=== PATIENT | male | born 1950 | race Caucasian/White ===

== ENCOUNTER 2019-06-08 10:25 | Day surgery (SDC) | payer MEDICARE, BC ==
[2019-06-05 11:57] VITALS: BMI 25.8
[2019-06-08] MEDS ORDERED: Bupivacaine/Epinephrine 0.25% 30 ML VIAL ONE (11:51)
[2019-06-08] MEDS ORDERED: Midazolam HCl 2 mg/2 ml Vial ONE (12:44)
[2019-06-08] MEDS ORDERED: Fentanyl 100 MCG/2 ML VIAL ONE (12:44)
--- NOTE | 2019-06-08 15:15 | OP ---
DATE OF PROCEDURE: 06/08/2019 PREOPERATIVE DIAGNOSIS: Umbilical hernia. POSTOPERATIVE DIAGNOSIS: Umbilical hernia. PROCEDURE PERFORMED: Umbilical hernia repair with mesh, Ventralex ST, small, 4 cm. ANESTHESIA: General. ESTIMATED BLOOD LOSS: Minimal. COMPLICATIONS: None. SPECIMENS: None. FINDINGS: Umbilical hernia. TECHNIQUE: The patient was taken to the operating room and laid supine on the operating room table. After general anesthetic was obtained, the abdomen was shaved, prepped, and draped in a sterile fashion. A curved incision was made below the umbilicus. Cautery was used to dissect down to and score the fascia. Umbilical stalk was amputated, exposing umbilical defect. The edges of the defect were freshened. The preperitoneal space was bluntly dissected through the defect. The small Ventralex mesh was brought into the sterile field. The inlay was placed in preperitoneal space and its fibers laid out flat against the posterior abdominal wall. Nurolon was used to sew the skirt of the mesh to the fascia on both sides. Nurolon was then used to close the fascia over the mesh as the tails were cut at the level of fascia. The wound was irrigated. Local anesthetic was applied. The umbilical stalk was tacked back down using 3-0 Vicryl. The skin was closed using running 4-0 Monocryl and Dermabond. The patient was sent to Recovery in stable condition. All instrument counts, needle counts, and lap counts were correct. Job ID: [id number]
== END 2019-06-08 16:00 | disposition home or self-care (01) ==
LOC: SDC 10:25 → EEVIPCON 11:30 → SDC 16:00
PROVIDERS: ATTEND Surgery
PROC: 0WUF0JZ Supplement Abdominal Wall with Synthetic Substitute, Open Approach (ICD-10-PCS; principal; 2019-06-08)
DX: K42.9 Umbilical hernia without obstruction or gangrene (principal); Z79.899 Other long term (current) drug therapy; Z88.8 Allergy status to other drugs, medicaments and biological substances
CPT/HCPCS: J0690; J2250; J3010

== ENCOUNTER 2023-02-23 06:11 | Day surgery (SDC) | payer MEDICARE, BC ==
[2023-02-19 11:35] VITALS: BMI 26.6
[2023-02-19 12:07] LABS: Hemoglobin 16.3 g/dL (13.5-17.5); Mean Corpuscular HGB CONC 34.1 g/dL (32.0-36.0); Mean Corpuscular Hemoglobin 29.9 pg (27.0-33.0); Mean Corpuscular Volume 87.5 fl (81.2-95.1); Mean Platelet Volume 10.6 fl (7.4-10.4); Platelet Count 194 10x3/uL (150-450); RBC Distribution Width 12.9 % (11.5-14.5); Red Blood Cell (RBC) Count 5.46 10x6/uL (4.32-5.72); White Blood Cell (WBC) Count 7.2 10x3/uL (3.5-10.5)
[2023-02-19 12:17] LABS: INR-International Normal Ratio 1.1; Prothrombin Time 11.8 sec (9.5-12.1)
[2023-02-19 12:20] LABS: Anion Gap 14 mmol/L (10-20); BUN (Urea Nitrogen) 12 mg/dL (8.4-25.7); Calc. Creatinine Clearance 90 mL/min (70-130); Calcium 9.9 mg/dL (7.8-10.44); Carbon Dioxide 26 mmol/L (23-31); Chloride 105 mmol/L (98-107); Estimated GFR 92; Glucose 81 mg/dL (83-110); Potassium 4.2 mmol/L (3.5-5.1); Sodium 141 mmol/L (136-145)
[2023-02-23] MEDS ORDERED: Lidocaine 1% (PF) 30 ML VIAL ONE (06:41)
[2023-02-23] MEDS ORDERED: Protamine Sulfate 50 MG/5 ML VIAL ONE (06:41)
[2023-02-23] MEDS ORDERED: Heparin 10,000 UNITS/ 10 ML VIAL ONE (06:41)
[2023-02-23] MEDS ORDERED: Propofol 1,000 MG/100 ML VIAL IV ONE (07:06)
[2023-02-23] MEDS ORDERED: Midazolam HCl 2 mg/2 ml Vial ONE (08:03)
[2023-02-23] MEDS ORDERED: fentaNYL 50 mcg/mL 1 mL Vial ONE (08:04)
[2023-02-23] MEDS ORDERED: Ondansetron PF 4 MG/2 ML Vial ONE (08:04)
[2023-02-23] MEDS ORDERED: Dexamethasone 20 MG/5 ML VIAL ONE (08:04)
[2023-02-23] MEDS ORDERED: PHENYLEPHRINE-NS 100 MCG/ML 10 ML SYRINGE ONE (08:04)
[2023-02-23] MEDS ORDERED: Lidocaine 2% Jelly 5 ML TUBE ONE (08:33)
[2023-02-23] MEDS ORDERED: Isoproterenol 0.2 MG/1 ML AMP ONE (08:34)
[2023-02-23] MEDS ORDERED: Phenylephrine 10 MG/ML VIAL ONE (10:21)
[2023-02-23] MEDS ORDERED: Metoprolol Tartrate 25 MG TAB PO SCH (12:45)
== END 2023-02-23 13:17 | disposition home or self-care (01) ==
LOC: SDC 06:11
PROVIDERS: ATTEND Internal Medicine Cardiovascular Disease
PROC: 4A023FZ Measurement of Cardiac Rhythm, Percutaneous Approach (ICD-10-PCS; principal; 2023-02-23)
PROC: 4A0234Z Measurement of Cardiac Electrical Activity, Percutaneous Approach (ICD-10-PCS; 2023-02-23)
PROC: 02K83ZZ Map Conduction Mechanism, Percutaneous Approach (ICD-10-PCS; 2023-02-23)
DX: I47.1 Supraventricular tachycardia (principal); I45.10 Unspecified right bundle-branch block; E78.5 Hyperlipidemia, unspecified; Z87.891 Personal history of nicotine dependence; Z79.01 Long term (current) use of anticoagulants; Z88.6 Allergy status to analgesic agent
CPT/HCPCS: 80048; 85027; 85610; 93005; 93620; 93623; C1730; C1732; C1760; C1894 ×4; C2630; J3010; 93010; 93613; 93621; J1100; J1644; J2001; J2250; J2370; J2405; J2704; J2720

== ENCOUNTER 2025-06-22 06:47 | Day surgery (SDC) | payer MEDICARE ==
[2025-06-21 09:37] VITALS: BMI 23.3
[2025-06-22 08:50] LABS: #Basophils 0.03 10x3/uL (0.0-0.2); #Eosinophils 0.22 10x3/uL (0.0-0.7); #Monocytes 0.74 10x3/uL (0.11-0.59); #Neutrophils 4.68 10x3/uL (1.40-6.50); %Basophils 0.4 % (0.0-1.0); %Eosinophils 2.8 % (0.0-10.0); %Lymphocytes 27.6 % (21.0-51.0); %Monocytes 9.4 % (0.0-10.0); %Neutrophils 59.7 % (42.0-75.0); Hematocrit 51.9 % (42.0-52.0); Hemoglobin 18.0 g/dL (14.0-18.0); Mean Corpuscular Hemoglobin 30.6 pg (27.0-31.0); Mean Corpuscular Volume 88.1 fL (78.0-98.0); Platelet Count 168 10x3/uL (130-400); Red Blood Cell (RBC) Count 5.89 mill/uL (4.70-6.10); White Blood Cell (WBC) Count 7.84 10x3/uL (4.8-10.8)
[2025-06-22] MEDS ORDERED: PROPOFOL 200 MG/20 ML VIAL ONE (09:16)
[2025-06-22 09:32] LABS: Anion Gap 10 mmol/L (10-20); BUN (Urea Nitrogen) 13 mg/dL (8.4-25.7); Calc. Creatinine Clearance 79 mL/min (70-130); Calcium 9.5 mg/dL (7.8-10.44); Carbon Dioxide 31 mmol/L (23-31); Chloride 103 mmol/L (98-107); Glucose 85 mg/dL (83-110); Potassium 4.2 mmol/L (3.5-5.1); Sodium 140 mmol/L (136-145)
== END 2025-06-22 10:08 | disposition home or self-care (01) ==
LOC: SDC 06:47
PROVIDERS: ATTEND Internal Medicine Cardiovascular Disease
PROC: 5A2204Z Restoration of Cardiac Rhythm, Single (ICD-10-PCS; principal; 2025-06-22)
DX: I48.3 Typical atrial flutter (principal); E78.5 Hyperlipidemia, unspecified; I47.19 Other supraventricular tachycardia; R06.02 Shortness of breath; Z87.891 Personal history of nicotine dependence; Z79.82 Long term (current) use of aspirin; Z79.01 Long term (current) use of anticoagulants
CPT/HCPCS: 80048; 85025; 92960; 93312; J2704

== ENCOUNTER 2025-09-17 09:20 | Outpatient (CLI) | payer MEDICARE ==
[2025-09-17 10:42] LABS: #Basophils 0.03 10x3/uL (0.0-0.2); #Eosinophils 0.15 10x3/uL (0.0-0.7); #Monocytes 0.60 10x3/uL (0.11-0.59); #Neutrophils 3.85 10x3/uL (1.40-6.50); %Basophils 0.5 % (0.0-1.0); %Eosinophils 2.3 % (0.0-10.0); %Lymphocytes 29.9 % (21.0-51.0); %Monocytes 9.1 % (0.0-10.0); %Neutrophils 58.0 % (42.0-75.0); Hematocrit 48.8 % (42.0-52.0); Hemoglobin 17.1 g/dL (14.0-18.0); Mean Corpuscular Hemoglobin 30.6 pg (27.0-31.0); Mean Corpuscular Volume 87.3 fL (78.0-98.0); Platelet Count 171 10x3/uL (130-400); Red Blood Cell (RBC) Count 5.59 mill/uL (4.70-6.10); White Blood Cell (WBC) Count 6.62 10x3/uL (4.8-10.8)
[2025-09-17 10:59] LABS: Anion Gap 12 mmol/L (10-20); BUN (Urea Nitrogen) 13 mg/dL (8.4-25.7); Calc. Creatinine Clearance 0 mL/min (70-130); Calcium 9.3 mg/dL (7.8-10.44); Carbon Dioxide 28 mmol/L (23-31); Chloride 102 mmol/L (98-107); Glucose 87 mg/dL (83-110); Potassium 4.3 mmol/L (3.5-5.1); Sodium 138 mmol/L (136-145)
[2025-09-17 11:10] LABS: INR-International Normal Ratio 1.2; Prothrombin Time 15.6 sec (12.0-14.7)
[2025-09-17 11:11] LABS: PTT 43.1 sec (22.9-36.1)
== END 2025-09-17 09:21 | disposition home or self-care (01) ==
LOC: LABBT 09:20
PROVIDERS: ATTEND Internal Medicine Cardiovascular Disease
DX: Z01.818 Encounter for other preprocedural examination (principal); I48.91 Unspecified atrial fibrillation; I48.92 Unspecified atrial flutter
CPT/HCPCS: 80048; 85025; 85610; 85730; 93005; 93010